=== PATIENT | male | born 1960 | race Hispanic/Latino ===

== ENCOUNTER → 2020-03-15 | Outpatient (CLI) | payer OTHER | END | disposition home or self-care (01) | LOC: RAH 13:07 | PROVIDERS: ATTEND Family Medicine | DX: R06.02 Shortness of breath (principal) | CPT/HCPCS: 71046 ==

== ENCOUNTER 2022-05-08 09:47 | Observation (INO) | payer OTHER ==
[2022-05-08] VITALS (14 sets, daily range): BP systolic 112–139; BP diastolic 60–68
[~2022-05-08] VITALS: Ht 165.1 cm; Wt 81.6 kg
[2022-05-08 10:22] LABS: BASOPHILS % (AUTO) 0.3 % (0.0-5.0); EOSINOPHILS % (AUTO) 0.2 % (0.0-8.0); HEMATOCRIT 46.2 % (42-54); LYMPHOCYTES % (AUTO) 9.4 % (21.0-51.0); MEAN CORPUSCULAR HEMOGLOBIN 30.1 pg (27.0-33.0); MEAN CORPUSCULAR HGB CONC 35.7 g/dL (32.0-36.0); MEAN CORPUSCULAR VOLUME 84.2 fL (79-99); MONOCYTES % (AUTO) 6.8 % (3.0-13.0); PLATELET COUNT (AUTO) 193 K/uL (130-400); RED BLOOD CELL COUNT(AUTO) 5.49 MIL/uL (4.50-6.20); RED CELL DISTRIBUTION WIDTH 12.4 % (11.0-15.5); WHITE BLOOD COUNT (AUTO) 18.3 K/uL (4.8-10.8)
[2022-05-08 10:26] LABS: APPEARANCE,URINE CLEAR (CLEAR); BILIRUBIN,URINE SMALL mg/dL (NEGATIVE); COLOR,URINE YELLOW (YELLOW); GLUCOSE, URINE (UA) 100 mg/dL (NEGATIVE); KETONES,URINE 5 mg/dL (NEGATIVE); LEUKOCYTE ESTERASE ,URINE NEGATIVE Leu/uL (NEGATIVE); NITRATE,URINE NEGATIVE (NEGATIVE); OCCULT BLOOD,URINE NEGATIVE (NEGATIVE); PROTEIN,URINE NEGATIVE (NEGATIVE); UROBILINOGEN,URINE 0.2 mg/dL (0.2-1.0)
[2022-05-08 10:38] LABS: CREATININE 0.9 mg/dL (0.5-1.5); POTASSIUM 3.6 mmol/L (3.5-5.1)
[2022-05-08 10:42] LABS: ALBUMIN 3.8 g/dL (3.5-5.0); TOTAL PROTEIN, SERUM 7.5 g/dL (6.0-8.3)
[2022-05-08 10:49] LABS: BACTERIA,URINE Rare /HPF (None Seen); MUCUS,URINE Few LPF (None Seen); RBC,URINE None Seen /HPF (0-1); WBC,URINE None Seen /HPF (0-1)
[2022-05-08] MEDS ORDERED: 0.9%NACL 1000ML 1,000 ML IV ONE (11:00)
[2022-05-08] MEDS ORDERED: ONDANSETRON 4MG INJ IVP ONE (11:00)
[2022-05-08] MEDS ORDERED: MORPHINE 4 MG SYG IVP ONE ×2 (11:00→17:00)
[2022-05-08] MEDS ORDERED: MORPHINE 4 MG SYG ONE (11:10)
[2022-05-08] MEDS ORDERED: ONDANSETRON 4MG INJ ONE ×2 (11:10→16:01)
[2022-05-08] MEDS ORDERED: ZOSYN 3.375GM +NS 50ML IV ONE (13:00)
[2022-05-08] MEDS ORDERED: ROSU20TA31 PO (14:42)
[2022-05-08] MEDS ORDERED: ONDANSETRON 4MG INJ IV PRN (15:30)
[2022-05-08] MEDS: LACTATED RINGERS 1000ML 1,000 ML IV SCH (15:30)
[2022-05-08] MEDS ORDERED: ACETAMINOPHEN 325 MG TAB PO PRN ×2 (15:30)
[2022-05-08] MEDS ORDERED: SUCCINYLCHOLINE CHLORIDE 20 MG/ML 10 ML VIAL ONE (15:58)
[2022-05-08] MEDS ORDERED: PROPOFOL 10 MG/ML 20ML VIAL IV ONE (15:58)
[2022-05-08] MEDS ORDERED: BUPIVACAINE/PF 0.5% 10ML VIAL ONE (15:58)
[2022-05-08] MEDS ORDERED: FENTANYL CITRATE PF 50 MCG/1 ML 2ML VIAL ONE ×2 (15:58→16:58)
[2022-05-08] MEDS ORDERED: MIDAZOLAM HCL 1 MG/ML 2ML VIAL ONE (15:59)
[2022-05-08] MEDS ORDERED: ROCURONIUM 10MG/1ML SYR 10 MG/ML ML ONE (15:59)
[2022-05-08] MEDS ORDERED: LIDOCAINE HCL-MPF 1% 2ML VIAL IV PRN (16:00)
[2022-05-08] MEDS ORDERED: POTASSIUM CHLORIDE 20MEQ/100ML 100 ML IV PRN (16:00)
[2022-05-08] MEDS ORDERED: METOPROLOL TARTRATE 1 MG/ML 5ML VIAL IV PRN (16:00)
[2022-05-08] MEDS ORDERED: PHENYLEPHRINE HCL 10 MG/ML 1ML VIAL IV ONE (16:48)
[2022-05-08] MEDS ORDERED: EPHEDRINE SULFATE 50 MG/ML AMPULE ONE (16:50)
[2022-05-08] MEDS ORDERED: GLYCOPYRROLATE 1 MG/5 ML SYRINGE ONE (17:00)
[2022-05-08] MEDS ORDERED: NEOSTIGMINE 5MG/5ML SYR IV ONE (17:00)
[2022-05-08] MEDS ORDERED: ZOSYN 3.375GM +NS 50ML IV SCH (19:00)
[2022-05-08] MEDS ORDERED: MORPHINE 4 MG SYG IVP PRN (19:00)
[2022-05-08] MEDS ORDERED: ONDANSETRON 4MG TABLET PO PRN (19:00)
[2022-05-08] MEDS ORDERED: INSU100I13 SQ (19:41)
[2022-05-08] MEDS ORDERED: INSU100I21 SQ (19:41)
[2022-05-08] MEDS ORDERED: ATOR10 PO (19:41)
[2022-05-08] MEDS: ACETAMINOPHEN WITH CODEINE 1 TAB TAB PO PRN (19:47)
[2022-05-08] MEDS: FAMOTIDINE 20MG VIAL IV SCH (20:51)
[2022-05-08] MEDS: ZOSYN 3.375GM+NS 50ML 50 ML IV SCH (20:51)
[2022-05-08] MEDS: INSULIN HUMULIN R 100 UNIT/ML 3ML SQ SCH (21:07)
[2022-05-09 00:06] VITALS: BP 109/61
[2022-05-09 03:42] VITALS: BP 125/65
[2022-05-09] MEDS: ZOSYN 3.375GM+NS 50ML 50 ML IV SCH ×2 (04:22→15:47)
[2022-05-09] MEDS: ACETAMINOPHEN WITH CODEINE 1 TAB TAB PO PRN (04:22)
[2022-05-09] MEDS: LACTATED RINGERS 1000ML 1,000 ML IV SCH (04:24)
[2022-05-09 05:16] LABS: BASOPHILS % (AUTO) 0.2 % (0.0-5.0); EOSINOPHILS % (AUTO) 0.2 % (0.0-8.0); HEMATOCRIT 39.2 % (42-54); LYMPHOCYTES % (AUTO) 19.7 % (21.0-51.0); MEAN CORPUSCULAR HEMOGLOBIN 30.2 pg (27.0-33.0); MEAN CORPUSCULAR HGB CONC 35.2 g/dL (32.0-36.0); MEAN CORPUSCULAR VOLUME 85.8 fL (79-99); MONOCYTES % (AUTO) 5.8 % (3.0-13.0); NEUTROPHILS % (AUTO) 73.8 % (40.0-77.0); PLATELET COUNT (AUTO) 154 K/uL (130-400); RED BLOOD CELL COUNT(AUTO) 4.57 MIL/uL (4.50-6.20); RED CELL DISTRIBUTION WIDTH 12.9 % (11.0-15.5); WHITE BLOOD COUNT (AUTO) 14.9 K/uL (4.8-10.8)
[2022-05-09 05:30] LABS: CREATININE 0.9 mg/dL (0.5-1.5); POTASSIUM 3.5 mmol/L (3.5-5.1)
[2022-05-09] MEDS: INSULIN HUMULIN R 100 UNIT/ML 3ML SQ SCH ×4 (06:28→17:39)
[2022-05-09 07:15] VITALS: BP 128/65
[2022-05-09] MEDS: FAMOTIDINE 20MG VIAL IV SCH (08:56)
[2022-05-09 11:10] VITALS: BP 111/55
[2022-05-09] MEDS ORDERED: KCL 20 MEQ ERTAB PO PRN (11:30)
[2022-05-09] MEDS ORDERED: POTASSIUM CHLORIDE 20MEQ/100ML 100 ML IV PRN (11:30)
[2022-05-09] MEDS ORDERED: POTASSIUM CHLORIDE 10% ELIXIR 20 MEQ/15 ML UDCUP PO PRN (11:30)
[2022-05-09] MEDS ORDERED: LIDOCAINE HCL-MPF 1% 2ML VIAL IV PRN (11:30)
[2022-05-09 15:15] VITALS: BP 125/65
== END 2022-05-09 19:45 | disposition home or self-care (01) ==
LOC: EDH 09:47 → INTOOBSV 15:26 → EDHIP 15:26 → 3DH 18:34
PROVIDERS: ADMIT Hospitalist; ATTEND Hospitalist
DX: K35.80 Unspecified acute appendicitis (principal); Z20.822 Contact with and (suspected) exposure to COVID-19; K38.1 Appendicular concretions; E78.00 Pure hypercholesterolemia, unspecified; I10 Essential (primary) hypertension; E78.5 Hyperlipidemia, unspecified; D72.829 Elevated white blood cell count, unspecified; E11.65 Type 2 diabetes mellitus with hyperglycemia; Z79.4 Long term (current) use of insulin; Z79.899 Other long term (current) drug therapy
CPT/HCPCS: 44970; 96376 ×2; 96361 ×2; 96365; 96366 ×2; 96375; 99285; 80053; 83690; 85025 ×2; 82948 ×3; 81001; 36415 ×2; 74176; 93005; 84145; 80048; 87635; J7030; J7120 ×2; J3490 ×5; J3010 ×2; J2710; J0330; J2250; J2704; J2405 ×2; J2270 ×2; J2543 ×4; J2370; C1769 ×3; A4649 ×4; A4930; J1815 ×2; G0378 ×10